=== PATIENT | female | born 1995 | race Caucasian/White ===

== ENCOUNTER 2019-06-08 10:38 | Emergency (ER) | payer BC ==
[~2019-06-08] VITALS: Ht 165.1 cm; Wt 60.4 kg
--- NOTE | 2019-06-08 12:21 | Diagnostic Imaging Report ---
CT of the abdomen and pelvis, without contrast, 06/08/2019. History: Left lower quadrant pain. Comparison: None available. Technique: Multidetector CT scanning of the abdomen and pelvis was performed from the level of the lung bases to the inferior pubic rami without intravenous or oral contrast. Coronal and sagittal multiplanar reformations were obtained. RADIATION DOSE: Total DLP: 476 mGy*cm Dose modulation, iterative reconstruction, and/or weight based adjustment of the mA/kV was utilized to reduce the radiation dose to as low as reasonably achievable. Discussion: Examination is limited without contrast. Lung bases: No visualized abnormalities. Abdomen: The liver, gallbladder, biliary tree, spleen, pancreas, adrenal glands, and kidneys are unremarkable. The abdominal aorta is within normal limits. There is no bowel dilatation. The appendix is visualized and is normal. There is no evidence of adenopathy or free fluid. Pelvis: The bladder, uterus, and adnexa are unremarkable. There is no evidence of free fluid or adenopathy. Bones and soft tissues: No abnormality. IMPRESSION: Normal noncontrast CT of the abdomen and pelvis. No evidence of nephrolithiasis, cholelithiasis, or appendicitis. Signed by: Hany Bo on 06/08/2019 12:19 PM
[2019-06-08] MEDS ORDERED: IBUPROFEN 600 MG TAB PO STA (12:22)
--- NOTE | 2019-06-08 12:24 | Diagnostic Imaging Report ---
Pelvic ultrasound. History: Left lower quadrant abdominal pain. Comparison: CT from today. Discussion: Transabdominal and transvaginal evaluation of the pelvis was performed in the transverse and longitudinal planes. The uterus is normal in size measuring 7.1 x 2.9 x 5.2 cm. The endometrial stripe is within normal limits at 2 mm. The right ovary was not visible transabdominally or transvaginally, obscured by overlying bowel. The left ovary measures 2.2 x 1.2 x 1.6 cm. There is no evidence of an adnexal mass. Normal arterial and venous flow is present within the left ovary with Doppler examination. There is no evidence of free fluid. IMPRESSION: Right ovary not visible. Otherwise unremarkable pelvic ultrasound. Signed by: Hany oB on 06/08/2019 12:21 PM
[2019-06-08] MEDS ORDERED: IBUPROFEN 600 MG TAB ONE (12:29)
[2019-06-08] MEDS ORDERED: NAPROSYN500 MG PO (12:33)
[2019-06-08 12:43] VITALS: BP 119/59
== END 2019-06-08 12:43 | disposition home or self-care (01) ==
LOC: FSED 10:38
DX: R10.32 Left lower quadrant pain (principal)
CPT/HCPCS: 74176; 76856; 80053; 81003; 81025; 85025; 99284

== ENCOUNTER → 2020-04-07 | Outpatient (CLI) | payer OTHER ==
[~2020-04-07] MED LIST: COVID-19 VACC, MRNA(MODERNA)/PF 100 MCG/0.5 ML VIAL IM ONE; NAPROSYN500 MG PO
== END ==
LOC: VACCPMC 17:00
DX: Z23 Encounter for immunization (principal); Z20.822 Contact with and (suspected) exposure to COVID-19

== ENCOUNTER → 2020-05-11 | Outpatient (CLI) | payer OTHER | END | DRG 951 | LOC: VACCPMC 10:46 | DX: Z23 Encounter for immunization (principal); Z20.822 Contact with and (suspected) exposure to COVID-19 | CPT/HCPCS: 0012A; 91301 ==

== ENCOUNTER → 2021-01-07 | Outpatient (CLI) | payer OTHER ==
[~2021-01-07] MED LIST changes: -COVID-19 VACC, MRNA(MODERNA)/PF 100 MCG/0.5 ML VIAL IM ONE
== END ==
LOC: LAB 10:54
PROVIDERS: ATTEND Obstetrics & Gynecology
DX: N39.0 Urinary tract infection, site not specified (principal)
CPT/HCPCS: 87086; 87186